=== PATIENT | male | born 1980 ===

== ENCOUNTER 2016-10-12 15:37 | Emergency (ER) | payer OTHER ==
[2016-10-12 16:02] LABS: Calcium 9.7 mg/dL (7.8-10.44); Chloride 109 mmol/L (98-107)
[2016-10-12 16:03] LABS: Lactic Acid - Sepsis 1.6 mmol/L (0.5-2.2)
[2016-10-12 16:14] LABS: Troponin I 0.016 ng/mL (< 0.028)
[2016-10-12 16:18] LABS: Bilirubin Negative (Negative); Blood, Urine Negative (Negative); Glucose, Urine (Dipstick) Negative (Negative); Ketone, Urine Negative (Negative); Nitrite Negative (Negative); Protein, Urine (Dipstick) Negative (Neg-Trace); Urobilinogen 0.2 mg/dL (0.2-1.0)
[2016-10-12 16:21] LABS: #Lymphocytes 0.6 thou/uL (1.20-3.40); #Monocytes 0.3 thou/uL (0.11-0.59); #Neutrophils 1.9 thou/uL (1.40-6.50); %Basophils 1.4 % (0.0-1.0); %Eosinophils 0.7 % (0.0-10.0); %Monocytes 10.4 % (0.0-10.0); Hematocrit 39.3 % (42.0-52.0); Mean Platelet Volume 7.3 fL (7.4-10.4); Red Blood Cell (RBC) Count 4.08 mill/uL (4.70-6.10); White Blood Cell (WBC) Count 2.8 thou/uL (4.8-10.8)
[2016-10-12 16:28] LABS: ALT (SGPT) 54 U/L (0-55); AST (SGOT) 65 U/L (5-34); Alkaline Phosphatase 65 U/L (40-150); Anion Gap 16 mmol/L (10-20); BUN (Urea Nitrogen) 17 mg/dL (8.9-20.6); Bilirubin, Total 0.5 mg/dL (0.2-1.2); CK (CPK) 392 U/L (30-200); Calc. Creatinine Clearance 0 mL/min (70-130); Carbon Dioxide 23 mmol/L (22-29); Estimated GFR-MDRD 79; Globulin 2.8 g/dL (2.4-3.5); Protein, Total 7.2 g/dL (6.0-8.3)
[2016-10-12 16:35] LABS: Methadone Not Detected (NotDetected); Methamphetamine Not Detected (NotDetected)
[2016-10-12 16:48] LABS: Acetaminophen Less than 3.0 mcg/mL (10.0-30.0); Salicylate Less than 5.0 mg/dL (15.0-30.0)
--- NOTE | 2016-10-12 17:15 | CT ---
CT BRAIN WITHOUT CONTRAST: Date: 10-12-16 Comparison: None. FINDINGS: The ventricles are normal in size and show no shift. No intracranial bleeding or extraaxial hematom a was seen. There were no signs of mass or stroke. There is perhaps a little bit of frontal atroph y which I assume to be chronic and a bit unusual in the age group. The patient's quadrigeminal cist erns is bigger than some, but this is not acute. I see no posterior fossa masses. Each IAC was nor mal in size. The mastoid air cells are clear. The visible paranasal sinuses are clear. IMPRESSION: No acute intracranial findings. POS: HOME
[2016-10-12] MEDS ORDERED: Lorazepam 2 MG/ML VIAL ONE (18:07)
[2016-10-12] MEDS ORDERED: OLANZapine ODT 5 MG TAB ONE (21:47)
[2016-10-13] MEDS ORDERED: Lorazepam 2 MG/ML VIAL ONE ×2 (00:44→01:57)
[2016-10-13] MEDS ORDERED: Ketorolac Tromethamine 30 MG/ML VIAL ONE (01:38)
[2016-10-13] MEDS ORDERED: Lorazepam 0.5 MG TAB ONE (02:30)
== END 2016-10-13 02:36 | disposition home or self-care (01) ==
LOC: BURERS 15:37
DX: T50.901A Poisoning by unspecified drugs, medicaments and biological substances, accidental (unintentional), initial encounter (principal); R41.82 Altered mental status, unspecified; I10 Essential (primary) hypertension
CPT/HCPCS: 36416; 70450; 80053; 80306; 80307; 81003; 82550; 82553; 83605; 84443; 84484; 85025; 93005; 96361; 96374; 96375; 96376; A4216; J1885; J2060